=== PATIENT | female | born 1950 | race Caucasian/White ===

== ENCOUNTER 2019-11-13 18:43 | Inpatient (IN) | payer OTHER ==
[~2019-11-13] VITALS: Ht 160 cm; Wt 79.0 kg
[2019-11-13] MEDS ORDERED: SYNTHROID100 MCG PO (19:54)
[2019-11-13] MEDS ORDERED: CRESTOR40 MG PO (19:54)
[2019-11-13] MEDS ORDERED: ZETIA10 MG PO (19:54)
--- NOTE | 2019-11-13 19:55 | NUR ---
PACIENTE ALERTA ORIENTADA X 3, REFIERE TENER DOLOR ABDOMINAL, HACE DARYL 10 LECHUGA , EL DOLOR A CONTINUADO AUN CON MEDICAMENTOS DE RELAFEN QUE VALENTIN MEDICO LE ORDENOP, LE GHULAM HACER UN ESTUDIO EN EL CUAL LA LLAMARON HOY QUE TENIA QUE IR A BUSCAR LOS ESTUDIOS Y VENIR DE INMEDIATO A MARGARET DE EMERGENCIA LUJAN BAJADO 13 LIBRAS EN 10 LECHUGA., NEFTALI FADIA REFIERE LE INDICARON QUE TIENE APENDICE PERFORADA.SE UBICA EN AREA DE OBNSERVACION Y SE PRESENTA A
--- NOTE | 2019-11-13 21:11 | NUR ---
[place]. OFRECIDO POR MIS. KEANE QIUEN ORIENTA AL PACIENTE SOBRE EL [place]. EXTRAE MUESTRAS DE RASHEL BAJO MEDIDAS ASEPTICAS ROTULA Y ENVIAN AL LABORATORIO CANALIZA Y ADMINISTRA MEDICAMENTO NEFTALI ORDEN MEDICA
== END 2019-11-22 12:47 | disposition home or self-care (01) | DRG 373 ==
LOC: ER 18:43 → SEC-K 11-14 01:52 → SURH 11-14 01:52
PROVIDERS: ADMIT Surgery
PROC: BW21YZZ Computerized Tomography (CT Scan) of Abdomen and Pelvis using Other Contrast (ICD-10-PCS; principal; 2019-11-14)
PROC: 3E0F7GC Introduction of Other Therapeutic Substance into Respiratory Tract, Via Natural or Artificial Opening (ICD-10-PCS; 2019-11-14)
PROC: BW20ZZZ Computerized Tomography (CT Scan) of Abdomen (ICD-10-PCS; 2019-11-19)
DX: K35.32 Acute appendicitis with perforation, localized peritonitis, and gangrene, without abscess (principal); E03.9 Hypothyroidism, unspecified; J20.9 Acute bronchitis, unspecified

== ENCOUNTER 2019-12-03 09:23 | Outpatient (CLI) | payer OTHER ==
[~2019-12-03 09:23] MED LIST: CRESTOR40 MG PO; SYNTHROID100 MCG PO; ZETIA10 MG PO
== END 2019-12-03 09:55 | disposition home or self-care (01) ==
LOC: TOM 09:23
DX: R10.2 Pelvic and perineal pain (principal)

== ENCOUNTER 2019-12-25 07:00 | Day surgery (SDC) | payer OTHER ==
[~2019-12-25] VITALS: Ht 175.3 cm; Wt 77.1 kg
[2019-12-26] MEDS ORDERED: PERCOCET 5-3251 EACH PO (11:39)
[2019-12-26] MEDS ORDERED: INTESTINEX680 M1 PO (11:39)
== END 2019-12-26 13:00 | disposition home or self-care (01) ==
LOC: CIR.AMB 07:00 → SURH 07:15 → EDSTATUS 09:15 → SURH 09:15 → O/R 11:10 → SURH 11:10 → CIR.AMB 12-26 13:00 → SURH 12-26 14:05
DX: C7A.020 Malignant carcinoid tumor of the appendix (principal); K35.33 Acute appendicitis with perforation, localized peritonitis, and gangrene, with abscess; E03.8 Other specified hypothyroidism; J98.01 Acute bronchospasm

== ENCOUNTER 2020-01-24 11:15 | Inpatient (IN) | payer OTHER ==
[~2020-01-24] VITALS: Ht 175.3 cm; Wt 77.1 kg
[~2020-01-24 11:15] MED LIST changes: +INTESTINEX680 M1 PO; +PERCOCET 5-3251 EACH PO
[2020-01-29] MEDS ORDERED: GEMFIBROZIL600 MG PO (08:59)
[2020-02-01] MEDS ORDERED: PRILOSEC OTC20 MG PO (09:48)
[2020-02-01] MEDS ORDERED: PERCOCET 5-3251 EACH PO (09:48)
== END 2020-02-01 10:39 | disposition home or self-care (01) | DRG 331 ==
LOC: O/R 01-29 05:45 → SURG 01-29 05:45 → SURH 01-29 05:45 → O/R 01-29 11:15 → SURH 01-29 11:35 → SURG 01-30 03:59
PROVIDERS: ADMIT Surgery
PROC: 07TB4ZZ Resection of Mesenteric Lymphatic, Percutaneous Endoscopic Approach (ICD-10-PCS; 2020-01-29)
PROC: 0DTF4ZZ Resection of Right Large Intestine, Percutaneous Endoscopic Approach (ICD-10-PCS; principal; 2020-01-29 07:00)
DX: D12.1 Benign neoplasm of appendix (principal); K63.89 Other specified diseases of intestine; R59.0 Localized enlarged lymph nodes; E03.8 Other specified hypothyroidism

== ENCOUNTER 2020-01-24 14:25 | Outpatient (CLI) | payer OTHER | END 2020-01-24 14:32 | disposition home or self-care (01) | LOC: RAD 14:25 | DX: C10.1 Malignant neoplasm of anterior surface of epiglottis (principal) ==

== ENCOUNTER 2020-01-28 07:10 | Day surgery (SDC) | payer OTHER ==
[2020-01-29] MEDS ORDERED: GEMFIBROZIL600 MG PO (08:59)
== END 2020-01-28 12:55 | disposition home or self-care (01) ==
LOC: AMB-ENDOS 07:10 → ADM 11:15 → AMB-ENDOS 12:55
PROVIDERS: ATTEND Surgery
DX: K62.89 Other specified diseases of anus and rectum (principal); K64.0 First degree hemorrhoids

== ENCOUNTER → 2020-11-20 | Outpatient (CLI) | payer OTHER ==
[~2020-11-20] MED LIST changes: +GEMFIBROZIL600 MG PO; +PRILOSEC OTC20 MG PO
== END | disposition home or self-care (01) ==
LOC: TOM 10:15
PROVIDERS: ATTEND Surgery
DX: C18.1 Malignant neoplasm of appendix (principal)
CPT/HCPCS: 72195; 74181

== ENCOUNTER 2021-01-19 07:21 | Day surgery (SDC) | payer OTHER | END 2021-01-19 12:00 | disposition home or self-care (01) | LOC: AMB-ENDOS 07:21 | PROVIDERS: ATTEND Surgery | DX: K62.89 Other specified diseases of anus and rectum (principal); Z20.822 Contact with and (suspected) exposure to COVID-19 ==

== ENCOUNTER 2021-11-05 14:15 | Outpatient (CLI) | payer OTHER | END 2021-11-05 15:00 | disposition home or self-care (01) | LOC: LAB 14:15 | PROVIDERS: ATTEND Radiology Diagnostic Radiology | DX: C18.1 Malignant neoplasm of appendix (principal) ==

== ENCOUNTER 2021-11-18 08:50 | Outpatient (CLI) | payer OTHER | END 2021-11-18 09:00 | disposition home or self-care (01) | LOC: MRI 08:50 | PROVIDERS: ATTEND Internal Medicine | DX: C18.1 Malignant neoplasm of appendix (principal) | CPT/HCPCS: 72196; 74182 ==